=== PATIENT | male | born 1965 | race Caucasian/White ===

== ENCOUNTER 2022-06-07 11:16 | Outpatient (REF) | payer MEDICAID, SELFPAY ==
[2022-06-07 20:47] LABS: ALT 21 U/L (16-63); AST 29 U/L (15-37); Albumin 4.2 g/dL (3.4-5.0); Alkaline Phosphatase 103 U/L (46-116); Anion Gap 10.9 mmol/L (3-11); BUN 17 mg/dL (7-18); Bilirubin, Total 0.6 mg/dL (0.2-1.0); CO2 23.1 mmol/L (21.0-32.0); CREATININE 0.9 mg/dL (0.70-1.30); Calcium 9.4 mg/dL (8.5-10.1); Calculated LDL 125 mg/dL (<100); Chloride 107 mmol/L (98-107); Cholesterol 191 mg/dL (<200); Estimated GFR 100.24 (mL/min/1.73m2); Glucose 83 mg/dL (74-106); HDL Cholesterol 45 mg/dL (40-60); Potassium 3.9 mmol/L (3.5-5.1); Sodium 141 mmol/L (136-145); Total Protein 8.3 g/dL (6.4-8.2); Triglyceride 107 mg/dL (<150)
== END 2022-06-07 11:17 | disposition home or self-care (01) ==
LOC: NCHCN 11:16
PROVIDERS: Visit Provider Nurse Practitioner Family
DX: I10 Essential (primary) hypertension (principal); I21.3 ST elevation (STEMI) myocardial infarction of unspecified site; F32.9 Major depressive disorder, single episode, unspecified; F17.210 Nicotine dependence, cigarettes, uncomplicated
CPT/HCPCS: 80053; 80061